=== PATIENT | male | born 1955 | race African-American/Black ===

== ENCOUNTER 2021-03-28 11:38 | Emergency (ER) | payer OTHER ==
[2021-03-28] MEDS ORDERED: traMADol HCl 50 MG TAB ONE (13:58)
== END 2021-03-28 15:03 | disposition home or self-care (01) ==
LOC: ERS 11:38
DX: M25.511 Pain in right shoulder (principal); M54.9 Dorsalgia, unspecified; R51.9 Headache, unspecified; I10 Essential (primary) hypertension; F17.210 Nicotine dependence, cigarettes, uncomplicated; Z79.899 Other long term (current) drug therapy; V49.9XXA Car occupant (driver) (passenger) injured in unspecified traffic accident, initial encounter

== ENCOUNTER 2025-05-17 15:42 | Emergency (ER) | payer MEDICARE ==
[2025-05-17 16:23] LABS: #Basophils 0.04 10x3/uL (0.0-0.2); #Eosinophils 0.11 10x3/uL (0.0-0.7); #Monocytes 0.57 10x3/uL (0.11-0.59); #Neutrophils 1.96 10x3/uL (1.40-6.50); %Basophils 0.9 % (0.0-1.0); %Eosinophils 2.4 % (0.0-10.0); %Lymphocytes 42.5 % (21.0-51.0); %Monocytes 12.2 % (0.0-10.0); %Neutrophils 41.8 % (42.0-75.0); Hematocrit 43.9 % (42.0-52.0); Hemoglobin 14.3 g/dL (14.0-18.0); Mean Corpuscular Hemoglobin 29.9 pg (27.0-31.0); Mean Corpuscular Volume 91.6 fL (78.0-98.0); Platelet Count 213 10x3/uL (130-400); Red Blood Cell (RBC) Count 4.79 mill/uL (4.70-6.10); White Blood Cell (WBC) Count 4.68 10x3/uL (4.8-10.8)
[2025-05-17 16:46] LABS: Anion Gap 13 mmol/L (10-20); BUN (Urea Nitrogen) 14 mg/dL (8.4-25.7); Calc. Creatinine Clearance 0 mL/min (70-130); Carbon Dioxide 23 mmol/L (23-31); Chloride 109 mmol/L (98-107); Potassium 4.2 mmol/L (3.5-5.1); Sodium 141 mmol/L (136-145)
[2025-05-17 16:47] LABS: ALT (SGPT) 18 U/L (Less than 45); AST (SGOT) 30 U/L (11-34); Albumin 3.8 g/dL (3.1-4.5); Alkaline Phosphatase 50 U/L (40-110); Bilirubin, Total 0.7 mg/dL (0.3-1.2); Calcium 8.7 mg/dL (7.8-10.44); Globulin 3.4 g/dL (2.4-3.5); Glucose 111 mg/dL (80-115); Magnesium 2.2 mg/dL (1.6-2.6)
[2025-05-17] MEDS ORDERED: Aspirin Chewable 81 MG TAB ONE (16:48)
== END 2025-05-17 18:40 ==
LOC: ERS 15:42
DX: R07.89 Other chest pain (principal); F43.0 Acute stress reaction; I10 Essential (primary) hypertension; F17.210 Nicotine dependence, cigarettes, uncomplicated; Z79.899 Other long term (current) drug therapy
CPT/HCPCS: 71045; 80053; 83735; 83880; 84484; 85025; 85379; 93005

== ENCOUNTER 2025-06-04 12:31 | Emergency (ER) | payer MEDICARE, OTHER ==
[2025-06-04] MEDS ORDERED: Nitroglycerin 0.4 MG TAB 1 EACH ONE (13:20)
[2025-06-04] MEDS ORDERED: Aspirin 325 MG TAB ONE (13:21)
[2025-06-04 13:22] LABS: #Basophils 0.03 10x3/uL (0.0-0.2); #Eosinophils 0.11 10x3/uL (0.0-0.7); #Monocytes 0.70 10x3/uL (0.11-0.59); #Neutrophils 2.62 10x3/uL (1.40-6.50); %Basophils 0.5 % (0.0-1.0); %Eosinophils 1.8 % (0.0-10.0); %Lymphocytes 40.5 % (21.0-51.0); %Monocytes 11.8 % (0.0-10.0); %Neutrophils 44.1 % (42.0-75.0); Hematocrit 38.2 % (42.0-52.0); Hemoglobin 12.4 g/dL (14.0-18.0); Mean Corpuscular Hemoglobin 30.1 pg (27.0-31.0); Mean Corpuscular Volume 92.7 fL (78.0-98.0); Platelet Count 180 10x3/uL (130-400); Red Blood Cell (RBC) Count 4.12 mill/uL (4.70-6.10); White Blood Cell (WBC) Count 5.95 10x3/uL (4.8-10.8)
[2025-06-04 13:30] LABS: ALT (SGPT) 40 U/L (Less than 45); AST (SGOT) 35 U/L (11-34); Albumin 3.4 g/dL (3.1-4.5); Alkaline Phosphatase 61 U/L (40-110); Anion Gap 12 mmol/L (10-20); BUN (Urea Nitrogen) 12 mg/dL (8.4-25.7); Bilirubin, Total 0.3 mg/dL (0.3-1.2); Calc. Creatinine Clearance 0 mL/min (70-130); Calcium 8.6 mg/dL (7.8-10.44); Carbon Dioxide 23 mmol/L (23-31); Chloride 108 mmol/L (98-107); Globulin 3.4 g/dL (2.4-3.5); Glucose 80 mg/dL (80-115); Lipase 54 U/L (8-78); Potassium 4.1 mmol/L (3.5-5.1); Sodium 139 mmol/L (136-145)
[2025-06-04] MEDS ORDERED: hydrALAZINE 20 MG/ML VIAL ONE (14:17)
== END 2025-06-04 15:10 | disposition home or self-care (01) ==
LOC: ERS 12:31
DX: R07.9 Chest pain, unspecified (principal); I10 Essential (primary) hypertension; F17.210 Nicotine dependence, cigarettes, uncomplicated; Z79.82 Long term (current) use of aspirin; Z79.899 Other long term (current) drug therapy
CPT/HCPCS: 71045; 80053; 83690; 84484; 85025; 93005; 96374; J0360